=== PATIENT | male | born 1970 | race Caucasian/White ===

== ENCOUNTER 2023-12-11 17:03 | Emergency (ER) | payer BC ==
[2023-12-11] MEDS: Lidocaine 2% Viscous Solution 15 ML UD PO ONE (18:24)
[2023-12-11] MEDS: Acetaminophen/oxyCODONE 325-5 MG Tab PO ONE (18:25)
[2023-12-11] MEDS: Benzocaine 20% Topical Spray UD MUCMEM ONE (18:25)
[2023-12-11] MEDS: Amoxicillin/Clavulanate K 875-125 MG Tab PO ONE (18:26)
== END 2023-12-11 18:40 | disposition home or self-care (01) ==
LOC: MW.ED 17:03
DX: K08.89 Other specified disorders of teeth and supporting structures (principal); Z75.8 Other problems related to medical facilities and other health care
CPT/HCPCS: 99282; A9270; 99283